=== PATIENT | male | born 1960 | race Caucasian/White ===

== ENCOUNTER 2024-07-12 04:38 | Emergency (ER) | payer OTHER, SELFPAY ==
[2024-07-12 04:43] VITALS: BP 118/88
[2024-07-12 07:06] VITALS: BMI 32.1
--- NOTE | 2024-07-12 07:58 | ED.GENMED ---
History of Present Illness
General
Chief Complaint: Musculo-Skeletal Complaint
Source: patient
Exam Limitations: none
Time Seen by Provider: 07/12/24 07:22
Nursing documentation reviewed up to this point in time: agreed with
History of Present Illness
History of Present Illness:
64 y/o M with R hand dominance
here with R thumb pain after slamming thumb in car door last night
he has pain and swelling
took tylenol at 2 am and woke up and didn't sleep much becuase of throbbing
pain is mostly at IPJ
no wounds or bleeding but he has some blood under the nailbed
h/o duodenal ulcer and cannot take NSAIDs
Past History
Past History
ED Past Medical History: GERD, NIDDM and Other (Peptic ulcer disease)
ED Past Surgical History: Orthopedic (Knee arthroscopy)
Social History
Tobacco: Non-smoker
Alcohol: None
Drug: None
Personal:
Living: with family
Employment: Employed
Family History
Family History: Negative Diabetes, Hypertension, CAD or Sudden
Review of Systems
Review of Systems
Allergies reviewed?: Yes
All Other Systems: Not applicable
Phy Exam
Physical Exam
Physical Exam:
GENERAL: Alert , in no apparent distress, comfortable at rest
HEAD: NCAT
CV: 2+ cap refill
NEUROLOGICAL: Alert and oriented, no focal neuro deficits, , 5/5 strength, sensation intact, ambulation slight limp right leg
SKIN: Warm and dry,
no wounds
small subungal hematoma
MUSCULOSKELETAL:right thumb mild swelling at IPJ and tenderness, with limited painful ROM
able to fully extend and flex
small subungal with tenderness nail plate
no bleeding
< 50% of the nail
PSYCH: Normal and appropriate interaction.
Course
Orders/Labs/Results
Orders:
Orders
07/12/24 04:45
CR Hand - Right Min 3 Views Urgent
Comment:
Reason For Exam: injury, thumb pain
07/12/24 08:05
Acetaminophen [Tylenol] 1,000 mg PO NOW STA
Vital Signs
Initial and Last Documented VS:
Initial Vital Signs
Temp Pulse Resp BP Pulse Ox
36.4 C 97 14 118/88 99
07/12/24 04:43 07/12/24 04:43 07/12/24 04:43 07/12/24 04:43 07/12/24 04:43
Last Documented Vital Signs
Temp Pulse Resp BP Pulse Ox
36.4 C 97 14 118/88 99
07/12/24 04:43 07/12/24 04:43 07/12/24 04:43 07/12/24 04:43 07/12/24 04:43
MDM/Problems Addressed
Differential Diagnosis Includes:
contusion, fracture
MDM/Problems Addressed:
[age]y/o M
R hand domiannt
slammed thumb in car door ast night
no wounds
has small< 50% subungal hematoma
pain at IPJ
limited ROM
xray indep reviewed by me, neg
nsaids cannot be sued due to h/o duodenal ulcer
tylenol
ice
trephonation not indicated
*Critical Care Note
Total Time (30-74mins, 75-104mins- exclusive of procedures): Not Applicable
ED Attending Note
-
Portions of this chart may have been created with voice recognition software.� Occasional wrong word or��sound alike� substitutions may have occurred due to the inherent limitations of voice recognition software.
Discharge Plan
Departure
Patient Disposition: Home (Routine Discharge)
Date of Disposition: 07/12/24
Time of Disposition: 08:30
Patient with high blood pressure during this ER visit?: No
Covid-19: Not Applicable
Discharge Problem:
Contusion of right thumb, Subungual hematoma
Instructions: Contusion (DC), Bruising Under the Nail
Prescriptions:
No Action
ondansetron HCl 8 MG tablet
8 mg PO BID
levofloxacin 500 MG tablet
500 mg PO DAILY
Activity Restrictions/Additional Instructions:
YOUR THUMB WAS NOT FRACTURED BUT LIKELY BRUISED AND YOU HAVE SOME BLEEDING UNDER THE NAIL PLATE WHICH CAN BE PAINFUL
ICE IS VERY IMPORTANT 20 MINUTES ON 20 MINUTES OFF
TYLENOL FOR PAIN
ELEVATE THE THUMB
WEAR THE FINGER SPLINT WHEN NOT ICING
FOLLOW UP FOR WORSENING PAIN
IF THE BLEEDING UNDER THE NAIL BECOMES > 50% OF THE NAIL THEN WE CAN DRAIN THE BLOOD, BUT USUALLY ICING IT AVOIDS THAT
Interventions
Interventions:
*Risk Screen - Suicide Last Done: 07/12/24 04:43
*General Assessment Last Done: 07/12/24 04:43
*Neglect/Abuse Screening Last Done: 07/12/24 04:43
ED- Fall Risk Assessment Last Done: 07/12/24 07:06
*ED COVID-19 Vaccine History Last Done: 07/12/24 07:06
*Nursing Disposition Last Done: 07/12/24 08:48
ED-Musculoskeletal Assessment Last Done: 07/12/24 07:06
Discharge Date and Time
Discharge Date/Time: 07/12/24 08:48
Print Language: SAMI
[2024-07-12] MEDS: TYLENOL 1000 MG PO (08:12)
== END 2024-07-12 08:48 | disposition home or self-care (01) ==
LOC: EMR 04:38
PROVIDERS: EMERGENCY PHYSICIAN Emergency Medicine; FAMILY PHYSICIAN Nurse Practitioner Family
DX: S60.011A Contusion of right thumb without damage to nail, initial encounter (principal); W23.2XXA Caught, crushed, jammed or pinched between a moving and stationary object, initial encounter; K21.9 Gastro-esophageal reflux disease without esophagitis; E11.9 Type 2 diabetes mellitus without complications; Z87.11 Personal history of peptic ulcer disease
CPT/HCPCS: 99283; 73130